=== PATIENT | female | born 1975 | race Asian ===

== ENCOUNTER 2023-06-10 09:00 | Outpatient (CLI) | payer OTHER ==
--- NOTE | 2023-06-11 16:12 | Ultrasound Report ---
LIMITED ULTRASOUND OF LEFT BREAST: 06/10/2023 CLINICAL: Diffuse left breast pain. Comparison is made to exams dated: 06/10/2023 mammogram - [facility] and 04/20/2014 mammogram - [facility]. Real-time ultrasound of the left breast upper outer quadrant was performed. Tony scale images of th e real-time examination were reviewed. No significant abnormalities were seen sonographically in the left breast. IMPRESSION: NEGATIVE There is no sonographic evidence of malignancy. There is no abnormality seen in the left breast to correspond with the area of clinical concern and p ain in the upper outer quadrant, however, recommend clinical follow up for persistent or worsening sy mptoms, or development of any clinically suspicious findings. A 1 year screening mammogram is recommended. Findings and recommendations were conveyed to the patient during today's evaluation. This exam was interpreted at Station ID: [id number]. Electronically Signed By: Denny Mitchell M.D. aty/:06/10/2023 10:42:33 Ultrasound BI-RADS: 1 Negative BI-RADS CATEGORY: (1) - 1 Mammogram [id number] 1 year screening LATERALITY: (B)
--- NOTE | 2023-06-11 16:12 | Mammography Report ---
BILATERAL DIGITAL DIAGNOSTIC MAMMOGRAM 3D/2D WITH EXAGGERATED CC: 06/10/2023 CLINICAL: Diffuse left breast pain. Due for bilateral. Comparison is made to exam dated: 04/20/2014 mammogram - [facility]. Both breasts are heterogeneously dense, which may obscure small masses (category c / 51-75% glandular tissue). No significant masses, calcifications, or other findings are seen in either breast. IMPRESSION: INCOMPLETE: NEEDS ADDITIONAL IMAGING EVALUATION There is no abnormality seen in the left breast to correspond with the area of clinical concern and p ain in the upper outer quadrant, however, an ultrasound is recommended for further evaluation and is scheduled to immediately follow this examination. Based on the Tyrer Cuzick model (a risk assessment model) the patients lifetime risk is 14.9% and he r 10 year risk is 3.4%. According to the ACR, ACS, and NCCN guidelines, an annual breast MRI exam haven ng with mammogram is recommended if the patients lifetime risk is 20% or greater. This exam was interpreted at Station ID: [id number]. NOTE: For mammograms, a report in lay terms will be sent to the patient. Approximately 15% of breast malignancies will not be visualized mammographically. In the management of a palpable breast mass, a negative mammogram must not discourage biopsy of a clinically suspicious lesion. Electronically Signed By: Denny Mitchell M.D. aty/:06/10/2023 09:55:07 ACR BI-RADS Category 0: Incomplete 3340F PARENCHYMAL PATTERN: (D) - The breast(s) demonstrate(s) heterogeneously dense fibroglandular luciano wilkerson. BI-RADS CATEGORY: (0) - 0 Ultrasound [id number] Immediate follow-up LATERALITY: (L)
== END 2023-06-10 09:01 | disposition home or self-care (01) ==
LOC: DI 09:00
PROVIDERS: ATTEND Physician Assistant
DX: N64.4 Mastodynia (principal)

== ENCOUNTER 2023-10-11 11:53 | Outpatient (CLI) | payer OTHER ==
--- NOTE | 2023-10-12 10:25 | XRAY Report ---
PROCEDURE: Ankle 3+V LT INDICATIONS: SPRAIN OF OTHER LIGAMENT OF LEFT ANKLE,INITIAL ENC TECHNIQUE: 3 views of the ankle were acquired. COMPARISON: None. FINDINGS: Bones: No fractures or dislocations. Ankle mortise is normally aligned and intact. No suspicious b elgin lesions. Soft tissues: No tibiotalar joint effusion. Achilles tendon appears normal. Mild soft tissue swell ing at the lateral ankle. IMPRESSION: No acute bony abnormality. If there remains a high clinical concern for fracture, consider cross-sect ional imaging now. If pain persists, consider repeat x-ray in 7-10 days days or cross-sectional imagi ng. Reviewed by: Tania Chavis MD on 10/12/2023 10:24 AM PST Approved by: Tania Chavis MD on 10/12/2023 10:24 AM PST Station ID: [id number]
== END 2023-10-11 11:54 | disposition home or self-care (01) ==
LOC: DI 11:53
PROVIDERS: ATTEND Family Medicine
DX: S93.492A Sprain of other ligament of left ankle, initial encounter (principal)